=== PATIENT | female | born 1980 | race Caucasian/White ===

== ENCOUNTER 2018-03-07 21:25 | Emergency (ER) | payer OTHER ==
[2018-03-07 21:58] VITALS: RESP 20; TEMP 97
[2018-03-07] MEDS ORDERED: ALUMINUM/MAGNESIUM 30 ML SUS PO ONE (22:29)
[2018-03-07] MEDS ORDERED: LIDOCAINE HCL 2% (VISCOUS) 20 ML SOL MT ONE (22:30)
[2018-03-07] MEDS ORDERED: LIDOCAINE HCL 2% (VISCOUS) 20 ML SOL ONE (22:41)
[2018-03-07] MEDS ORDERED: ALUMINUM/MAGNESIUM 30 ML SUS ONE (22:41)
[2018-03-07 23:04] LABS: BASOPHILS % (AUTO) 1 % (0-3); EOSINOPHILS % (AUTO) 3 % (0-9); HEMATOCRIT 36 % (35-47); HEMOGLOBIN 11.5 gm/dl (12.0-15.5); LYMPHOCYTES % (AUTO) 12.7 % (10-50); MEAN CORPUSCULAR HEMOGLOBIN 26.9 pg (27.0-32.0); MEAN CORPUSCULAR VOLUME 84 fL (81-99); MONOCYTES % (AUTO) 5.8 % (0-12); NEUTROPHILS % (AUTO) 78.1 % (37-80)
[2018-03-07 23:15] LABS: APPEARANCE,URINE Clear; BILIRUBIN,URINE NEGATIVE (NEGATIVE); COLOR,URINE Yellow; GLUCOSE, URINE (UA) NEGATIVE (NEGATIVE); KETONES,URINE NEGATIVE (NEGATIVE); LEUKOCYTE ESTERASE ,URINE NEGATIVE (NEGATIVE); NITRATE,URINE NEGATIVE (NEGATIVE); OCCULT BLOOD,URINE NEGATIVE (NEG-TRACE)
[2018-03-07 23:17] LABS: ALBUMIN 3.3 gm/dl (3.4-5.0); ALKALINE PHOSPHATASE 115 IU/L (46-116); ALT 50 IU/L (14-63); AST 89 IU/L (15-37); BILIRUBIN,TOTAL 0.3 mg/dl (0.2-1.0); BLOOD UREA NITROGEN 9 mg/dl (7-18); CALCIUM 8.5 mg/dl (8.5-10.1); CARBON DIOXIDE 24.4 mEq/L (21-32); CHLORIDE 107 mMol/L (98-107); CREATININE 0.89 mg/dl (0.60-1.00); GLUCOSE 91 mg/dl (74-106); SODIUM 140 mMol/L (136-145); TOTAL PROTEIN 6.6 gm/dl (6.4-8.2); TROP I < 0.017 ng/ml (0.000-0.056)
[2018-03-07 23:26] LABS: BACTERIA 2+ (< 1+); CRYSTALS NEGATIVE (0-3 AVE/HPF); EPITHELIAL CELLS NEGATIVE (SQUAMOUS); RBC,URINE NEGATIVE (0-3AV/HPF); WBC,URINE 0-1 (0-5AV/HPF)
[2018-03-08] MEDS ORDERED: KETOROLAC TROMETHAMINE 30 MG/ML SOL IV ONE (00:32)
[2018-03-08] MEDS ORDERED: KETOROLAC TROMETHAMINE 30 MG/ML SOL ONE (00:33)
[2018-03-08 01:28] VITALS: BP 127/77; PULSE 79; O2SAT 98
[2018-03-08 02:24] LABS: AMYLASE 31 IU/L (25-115)
== END 2018-03-08 01:05 | disposition home or self-care (01) | DRG 313 ==
LOC: ED 21:25
DX: R07.9 Chest pain, unspecified (principal); K80.20 Calculus of gallbladder without cholecystitis without obstruction
CPT/HCPCS: 71275; 80053; 81001; 82150; 84484; 85025; 85378; 93005; 96374; 99284; J1885; Q9967; A9270-GY